=== PATIENT | female | born 1955 | race Two or more races ===

== ENCOUNTER 2018-11-19 13:00 | Inpatient (IN) | payer OTHER ==
[~2018-11-19] VITALS: Ht 167.6 cm; Wt 97.1 kg
[~2018-11-19 13:00] MED LIST: AMBIEN CR12.5 MG PO; BISOPROLOL FUMA10 MG PO; CLONAZEPAM1 MG PO; DITROPAN XL15 MG PO; LIPITOR20 MG PO; NABUMETONE500 MG PO; PERCOCET 5-3251 EACH PO; VALSARTAN-HCTZ1 EAC2 PO; VENAFAXINE PO
[2018-11-29] MEDS ORDERED: NeurRONTin 100mg cap PO (13:53)
[2018-11-29] MEDS ORDERED: NORFLEX100MG PO (13:53)
[2018-11-29] MEDS ORDERED: OXYC1TAB9 PO (13:54)
[2018-11-29] MEDS ORDERED: XARELTO10 MG PO (13:54)
== END 2018-11-29 16:21 | disposition home or self-care (01) | DRG 470 ==
LOC: O/R 11-27 05:30 → SURH 11-27 05:30
PROVIDERS: ADMIT Orthopaedic Surgery
PROC: 0SRC0J9 Replacement of Right Knee Joint with Synthetic Substitute, Cemented, Open Approach (ICD-10-PCS; principal; 2018-11-27 07:00)
DX: M17.11 Unilateral primary osteoarthritis, right knee (principal); D62 Acute posthemorrhagic anemia; I13.10 Hypertensive heart and chronic kidney disease without heart failure, with stage 1 through stage 4 chronic kidney disease, or unspecified chronic kidney disease; N18.2 Chronic kidney disease, stage 2 (mild); E78.00 Pure hypercholesterolemia, unspecified; I87.2 Venous insufficiency (chronic) (peripheral); G47.33 Obstructive sleep apnea (adult) (pediatric)